=== PATIENT | female | born 2000 | race Two or more races ===

== ENCOUNTER 2024-05-20 15:27 | Emergency (ER) | payer MEDICAID, SELFPAY ==
[2024-05-20 15:28] VITALS: BMI 21.3
[2024-05-20 15:34] VITALS: BP 152/87; PULSE 77; RESP 18; TEMP 37.1; O2SAT 96
--- NOTE | 2024-05-20 15:43 | XR_ITS ---
Examination: CT brain head without contrast. 2-D sagittal coronal reconstructions Date and time of exam:May 20, 2024 1550 hours INDICATIONS: Onset dizziness today COMPARISON: July 10, 2004 CTDI: vol (mGy):44.8 DLP: (mGycm):825 Technique: Multiple CT axial sections of the brain have been obtained, 5 mm slice thickness. Contrast has not been administered. 2-D sagittal, coronal reconstructions have been obtained Low dose protocols were performed. One or more of the following dose reduction techniques were used; automated exposure control, adjustment of the mA and/or KV according to patient size, use of iterative reconstruction technique. Findings: No significant ventricular enlargement. Intra-axial or extra-axial hemorrhage density is not seen. No mass effect or midline shift Basal cisterns are not remarkable. Fourth ventricle is midline. Cranial vault intact. Impression: Negative for acute hemorrhage, mass effect or midline shift Advise clinical correlation follow-up accordingly
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
--- NOTE | 2024-05-20 15:43 | XR_ITS ---
Examination: CT cervical spine without contrast 2-D sagittal reconstructions 2-D coronal reconstructions 3-D reconstructions. Exam date and time:May 20, 2024 1550 hours INDICATIONS: Onset generalized neck pain today CTDI:vol (mGy) 7.11 DLP: (mGycm) 149 Technique: Multiple 2 mm axial sections of the cervical spine have been obtained. The coronal and sagittal reconstructions have been obtained. 3-D reconstructions have been obtained. Low dose protocols were performed. One or more of the following dose reduction techniques were used; automated exposure control, adjustment of the mA and/or KV according to patient size, use of iterative reconstruction technique. Findings: Axial sections demonstrate intact base of the skull. C1 exhibit satisfactory relationship to the odontoid. No acute cervical vertebral body fracture seen. Alignment posterior spinous processes satisfactory. Impression: No acute cervical fracture. If symptoms persist, recommend MRI cervical spine without contrast follow-up
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
[2024-05-20 18:31] LABS: HCG Qualitative,Urine Negative
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
[2024-05-20 18:54] VITALS: BP 111/58; PULSE 66; RESP 19; TEMP 37; O2SAT 99
[2024-05-20] MEDS: ACETAMINOPHEN 325 MG TABLET 650 MG PO (19:20)
[2024-05-20 19:29] VITALS: BP 92/49; PULSE 76; RESP 16; TEMP 36.7; O2SAT 98
== END 2024-05-20 19:29 | disposition home or self-care (01) ==
PROVIDERS: Nurse Practitioner Family; Emergency Provider Emergency Medicine
DX: S40.011A Contusion of right shoulder, initial encounter (principal); V43.52XA Car driver injured in collision with other type car in traffic accident, initial encounter; Y92.410 Unspecified street and highway as the place of occurrence of the external cause
CPT/HCPCS: 70450; 71046; 72125; 73030; 81025; 99284; A9270

== ENCOUNTER 2024-12-28 00:48 | Inpatient (IN) | payer MEDICAID, SELFPAY ==
[2024-12-28] VITALS (168 sets, daily range): BP systolic 86–166; BP diastolic 49–97; PULSE 46–124; RESP 16–97; TEMP 36.7–38.6; O2SAT 91–100; BMI 27.9; BMI 27.8
[2024-12-28 02:41] LABS: ROM Kit Exp Date# 04/11/28; ROM Kit Lot # 58106258; ROM Swab Mixed By: KE; Rupture of Fetal Membranes Positive (Negative); Swb Mxed in Solvent 1 min? Yes
--- NOTE | 2024-12-28 03:23 | PD.ADDHP ---
Addendum History & Physical Addendum Date of report being addended: 12/28/24 Narrative: Pt reexamined. No changes. Continue current plan.
[2024-12-28 05:04] LABS: Basophils # (Auto) 0.0 Thou/mm3 (0.0-0.2); Basophils % (Auto) 0 % (0-2.5); Eosinophils # (Auto) 0.1 Thou/mm3 (0.0-0.5); Eosinophils % (Auto) 1 % (0-10); Hematocrit 34.6 % (36.0-46.0); Hemoglobin 11.9 g/dL (12.0-16.0); Immature Granulocytes Auto 0.09 Thou/mm3 (0.00-0.00); Lymphocytes # (Auto) 1.7 Thou/mm3 (1.0-4.8); Lymphocytes % (Auto) 18 % (10-50); Mean Corpuscular HGB Conc 34.4 g/dl (31.0-37.0); Mean Corpuscular Hemoglobin 30.1 pg (25.0-35.0); Mean Corpuscular Volume 87 fL (80-100); Monocytes # (Auto) 0.5 Thou/mm3 (0.0-0.8); Monocytes % (Auto) 5 % (0-12); Neutrophils # (Auto) 7.0 Thou/mm3 (1.8-7.7); Neutrophils % (Auto) 75 % (37-80); Nucleated Red Blood Cell # 0.00 Thou/mm3 (0.00-0.00); Nucleated Red Blood Cell % 0 /100 WBC (0); Platelet Count 282 Thou/mm3 (140-440); RDW Standard Deviation 39.6 fL (36.4-46.3); Red Blood Count 3.96 Miln/mm3 (4.00-5.20); White Blood Count 9.4 Thou/mm3 (3.6-11.0)
[2024-12-28 05:38] LABS: Syphilis Nonreactive (Nonreactive)
[2024-12-28] MEDS: RINGERS LACTATED 1000 ML 1,000 ML 100 ML IV ×3 (10:16→11:13)
--- NOTE | 2024-12-28 11:30 | PC.NURSE ---
Patient allowed RN to view records on her online account RN verified OB labs and GBS. Pt is O+ antibody -, rubella IM, RNR-NR, Hep neg, HIV NR, and Chlam/Henrik Neg and GBS neg. RN awaiting on Dr. Hernandez to bring paper copy of records.
[2024-12-28] MEDS: MINERAL OIL 30 ML UDC TOP (13:45)
[2024-12-28] MEDS: OXYTOCIN in NS 20 units 20 UNIT/1,000 ML BAG 125 UNIT IV (13:52)
[2024-12-28] MEDS: METHYLERGONOVINE INJ 0.2 MG/ML VIAL IM (14:01)
--- NOTE | 2024-12-28 14:15 | PD.LDDS ---
DS: Providers Provider Date of admission: 12/28/24 02:45 Primary care physician: Physician No Primary/Family Admitting Provider: Clemente Hernandez MD Attending Provider on Admission: Clemente Hernandez MD Attending Provider on DC: Clemente Hernandez MD Discharging Provider: Clemente Hernandez MD DS: Diagnosis Discharge Diagnosis (1) Vacuum-assisted vaginal delivery: Status: Acute (2) hemorrhage: Status: Acute (3) Uterine atony: Status: Acute Problem List Completed Was Problem List Reviewed/Reconciled?: Yes Summary/Hosp Course Peripartum Data Delivery Method: Normal Vaginal Delivery Episiotomy Description: None Time Spent with Patient Time attestation: Total time spent providing and/or coordinating discharge services: Exam Vital Signs Temp Pulse Resp BP Pulse Ox 98.1 F 68 18 115/58 L 99 12/28/24 09:30 12/28/24 14:11 12/28/24 09:30 12/28/24 14:11 12/28/24 13:47 Discharge Plan Plan Patient Disposition: HOME (Self Care) Patient condition on transfer: Stable Prescriptions/Referrals Prescriptions/Med Rec: New ibuprofen 600 mg tablet 600 mg PO Q6H PRN (Reason: pain) Qty: 30 0RF hydrocortisone 2.5 % cream with perineal applicator 1 applic CO TID PRN (Reason: hemorrhoids) 7 Days Qty: 30 1RF amoxicillin-pot clavulanate 875-125 mg tablet 1 tab PO BID Qty: 10 0RF Continued ursodiol 300 mg capsule 300 mg PO QID Patient Comments: TAKE ONE CAPSULE BY MOUTH THREE TIMES DAILY Vitamin 27 mg iron- 800 mcg tablet 1 tab PO DAILY Patient Comments: TAKE ONE TABLET BY MOUTH EVERY DAY VITAMIN Discontinued ferrous sulfate [FeroSul] 325 mg (65 mg iron) tablet 325 mg PO DAILY Patient Comments: TAKE ONE TABLET BY MOUTH DAILY VITAMIN ORANGE JUICE aspirin 81 mg tablet,delayed release (DR/EC) 81 mg PO DAILY Patient Comments: TAKE ONE TABLET BY MOUTH EVERY DAY FOR THE HEART hydroxyzine HCl 25 mg tablet 25 mg PO QID Patient Comments: Take 1 tablet by mouth every six hours as directed for itching Referrals: No Primary/Family,Physician [Primary Care Provider] Patient/Caregiver Discharge Instructions Discharge Activity: activity as tolerated Other Discharge Activity Instructions:: Follow up office visit 6 weeks. Stop taking Ursodiol when itching stops. Education Materials: After a Vaginal , Breast Care After Print Language: [place]ian Stand Alone Forms: Dora Award Info., Patient Portal Info Letter Discharge Order Discharge Orders: Discharge (Routine); Ordered 12/30/24 Ordered By: Clemente Hernandez Planned Discharge Date 12/30/24 (2) hemorrhage Qualifiers: hemorrhage type: other immediate Qualified Code(s): O72.1 - Other immediate hemorrhage
--- NOTE | 2024-12-28 14:16 | PD.LDDELS ---
Vacuum Assisted Delivery General Patient Counseled by physician:: Yes Informed consent to patient:: Yes Estimated weight:: 6 lb 8 oz Cervical dilation:: fully dilated station:: +3 position:: OP Molding:: No Caput:: Yes Vacuum Application Vacuum type:: Mityvac Vacuum application:: flexing median Total vacuum time (min):: 5 Maximum pressure (cm Hg):: 50 Cup Placement Flexion point identified:: Yes Cup approp. for head position:: Yes Maternal tissue excluded:: Yes Vacuum Procedure Number of pulls (contractions):: 3 Number of pop-offs:: 2 Recommended range maintained:: Yes Vacuum reduced between pulls:: Yes Advancement made each pull:: Yes Vacuum successful:: Yes Immediate Evaluation Immediate assessment:: caput Hand-off care to:: nursery nurse Data ([facility]) Data Hx Section: No : 1 Term: 0 : 0 Livin Abortions: Spontaneous & Theraputic: 0 Delivery Data ([place]) Labor Data Initiation of labor: Induction Induction/Augmentation Agent: Cytotec-PO ROM date: 12/27/24 ROM time: 22:40 Amniotic membrane rupture type: Spontaneous Amniotic fluid description: Clear Delivery Data EDC: 01/13/25 EDC calculated by:: LMP/early US confirmation Onset of labor date: 12/27/24 Onset of labor time: 22:40 Complete dilation date: 12/28/24 Complete dilation time: 12:16 [facility] delivery date: 12/28/24 [facility] delivery time: 13:46 Gestational age (weeks): 37 Gestational age (days): 5 Placenta delivery date: 12/28/24 Placenta delivery time: 13:47 Stage 1 total time: Labor - Stage 1 Duration 13 hours and 36 minutes Delivered by: Clemente Hernandez Delivery nurse: Alayna Simons RN [place] nurse: Monique Rose RN Director Of Physical Therapy at delivery: No Support person(s) at delivery: fob and sister of pt Delivery Method Delivery method: Normal Vaginal Delivery Presentation: Vertex position: OP Anesthesia Type Anesthesia Type: Epidural Placenta Placenta delivery description: Spontaneous Cord blood sent to lab: Yes cord blood collection: Cord Blood Type, Arterial Cord Blood Gas and Venous Cord Blood Gas Episiotomy Episiotomy description: None Lacerations #1: Perineal: 2nd degree Vaginal: 2nd degree Perineal repair Sutures used for repair: 3.0 Chromic EBL Estimated blood loss (ml): 300 Umbilical Cord cord description: 3 Vessels Complications Complications: Uterine atony responded to Methergine, Pitocin, Cytotec and TXA Data ([place]) Data order: 1 [facility] gender: Male weight (gms): 7 lb 0.877 oz Weight (pounds): 7 lbs and 0.9 ozs [facility] length: 20.5 in 1 minute: 5 5 minutes: 8
[2024-12-28] MEDS: TRANEXAMIC ACID 1,000 MG IVPB 1,000 MG/100 ML BAG 200 MG IV (14:30)
[2024-12-28] MEDS: BENZO/LANO/ALOE (Dermoplast) 60 GM CAN 1 SPRAY TOP (14:34)
[2024-12-28] MEDS: IBUPROFEN TAB 400 MG TABLET 800 MG PO (14:36)
[2024-12-28] MEDS: ACETAMINOPHEN IVPB 1,000 MG/100 ML VIAL 250 MG IV ×2 (15:34→21:02)
[2024-12-28] MEDS: GENTAMICIN/NS 100 MG IVPB 100 MG/100 ML BAG IV ×3 (16:17→18:15)
[2024-12-28] MEDS: AMPICILLIN/SULBAC INJ 3 GM in SODIUM CHLORIDE 0.9% (POP) 100 ML IV (19:26)
[2024-12-28 20:43] LABS: Basophils # (Auto) 0.0 Thou/mm3 (0.0-0.2); Basophils % (Auto) 0 % (0-2.5); Eosinophils # (Auto) 0.0 Thou/mm3 (0.0-0.5); Eosinophils % (Auto) 0 % (0-10); Hematocrit 32.7 % (36.0-46.0); Hemoglobin 11.1 g/dL (12.0-16.0); Immature Granulocytes Auto 0.09 Thou/mm3 (0.00-0.00); Lymphocytes # (Auto) 1.7 Thou/mm3 (1.0-4.8); Lymphocytes % (Auto) 11 % (10-50); Mean Corpuscular HGB Conc 33.9 g/dl (31.0-37.0); Mean Corpuscular Hemoglobin 29.8 pg (25.0-35.0); Mean Corpuscular Volume 88 fL (80-100); Monocytes # (Auto) 0.8 Thou/mm3 (0.0-0.8); Monocytes % (Auto) 5 % (0-12); Neutrophils # (Auto) 12.6 Thou/mm3 (1.8-7.7); Neutrophils % (Auto) 83 % (37-80); Nucleated Red Blood Cell # 0.00 Thou/mm3 (0.00-0.00); Nucleated Red Blood Cell % 0 /100 WBC (0); Platelet Count 233 Thou/mm3 (140-440); RDW Standard Deviation 39.8 fL (36.4-46.3); Red Blood Count 3.72 Miln/mm3 (4.00-5.20); White Blood Count 15.2 Thou/mm3 (3.6-11.0)
--- NOTE | 2024-12-28 23:46 | PC.NURSE ---
MD notified regarding patient's HR of 44 bpm, patient asymptomatic. MD aware, no new order given.
[2024-12-29] MEDS: AMPICILLIN/SULBAC INJ 3 GM in SODIUM CHLORIDE 0.9% (POP) 100 ML IV ×4 (01:02→18:16)
[2024-12-29] MEDS: ACETAMINOPHEN IVPB 1,000 MG/100 ML VIAL 250 MG IV ×2 (03:25→10:01)
[2024-12-29] MEDS: IBUPROFEN TAB 400 MG TABLET 800 MG PO (03:54)
[2024-12-29 04:00] VITALS: BP 101/61; PULSE 53; RESP 18; TEMP 36.6; O2SAT 97
--- NOTE | 2024-12-29 06:58 | PC.NURSE ---
accessed patient's chart and EMAR for main nurse gilbert BREWER.
[2024-12-29 08:40] VITALS: BP 112/73; PULSE 61; RESP 18; TEMP 36.6; O2SAT 97
--- NOTE | 2024-12-29 09:10 | ESPR_ITS ---
RE: RHIANNON ARTEAGA : 2000 DATE OF SERVICE: 12/29/2024 SUBJECTIVE: day #1. Patient denies any problem or complaints. She is voiding. She is ambulating. She is tolerating regular diet. She is passing flatus. She denies any excessive vaginal bleeding. She denies any dizziness or lightheadedness. She denies any chest pain, palpitations, shortness of breath, or lower extremity pain. She had a temperature of 101.5 yesterday at 1525. OBJECTIVE: VITAL SIGNS: Blood pressure 101/61, heart rate 53, respirations 18, temperature is 97.9, pulse ox is 97% on room air. LUNGS: Clear to auscultation bilaterally. HEART: Regular rate and rhythm. ABDOMEN: Fundus is firm, nontender. EXTREMITIES: Nontender. LABORATORY DATA: Hemoglobin pre-delivery is 11.9, post-delivery is 11.1. White blood cell count is 15.2. ASSESSMENT: 1. day #1, status post vacuum-assisted vaginal delivery. 2. Endometritis. PLAN: Unasyn and gentamicin. Possible discharge home tomorrow. At times, the heart rate is in the bradycardic range, but she is asymptomatic. DT: 08:26:19 TT: 09:09:00 Ref: [id number] - TID: [id number]
[2024-12-29] MEDS: HYDROCORTISONE ACET CR 2.5% 30 GM TUBE PR ×2 (09:43→21:01)
[2024-12-29] MEDS: DOCUSATE SOD 100 MG CAPSULE PO (11:42)
[2024-12-29 11:50] VITALS: BP 98/52; PULSE 60; RESP 17; TEMP 36.9; O2SAT 98
[2024-12-29] MEDS: GENTAMICIN/NS 100 MG IVPB 100 MG/100 ML BAG IV ×3 (15:37→17:38)
[2024-12-29 21:00] VITALS: BP 103/57; PULSE 62; RESP 18; TEMP 36.7; O2SAT 98
[2024-12-30] MEDS: AMPICILLIN/SULBAC INJ 3 GM in SODIUM CHLORIDE 0.9% (POP) 100 ML IV ×2 (00:37→05:21)
[2024-12-30 04:00] VITALS: BP 97/59; PULSE 59; RESP 20; TEMP 36.7; O2SAT 98
[2024-12-30] MEDS: IBUPROFEN TAB 400 MG TABLET 800 MG PO (05:21)
--- NOTE | 2024-12-30 06:26 | ESPR_ITS ---
RE: RHIANNON ARTEAGA : 2000 DATE OF SERVICE: 12/30/2024 SUBJECTIVE: day #2. Patient denies any problem or complaints. OBJECTIVE: Blood pressure 97/59, heart rate 59, respirations 20, temperature is 98.0, pulse ox is 98% on room air, afebrile for 24 hours. Lungs clear to auscultation bilaterally. Heart regular rate rhythm. Abdomen, fundus is firm and nontender. Extremities nontender. ASSESSMENT AND PLAN: day #2, status post vacuum-assisted vaginal delivery, resolving endometritis. Plan discharge home on antibiotics, follow up in the office in 6 weeks, discharge instructions given. DT: 06:06:57 TT: 06:25:00 Ref: [id number] - TID: [id number]
[2024-12-30 07:40] VITALS: BP 97/51; PULSE 59; RESP 17; TEMP 36.8; O2SAT 99
[2024-12-30] MEDS: HYDROCORTISONE ACET CR 2.5% 30 GM TUBE PR (08:12)
[2024-12-30] MEDS: DOCUSATE SOD 100 MG CAPSULE PO (08:12)
== END 2024-12-30 11:28 | disposition home or self-care (01) | DRG 560 ==
LOC: S4SX 14:11 → S4NX 16:08
PROVIDERS: Admitting Provider Specialist; Visit Provider Specialist
DX: O70.1 Second degree perineal laceration during delivery (principal); Z37.0 Single live birth; O72.1 Other immediate postpartum hemorrhage; N71.9 Inflammatory disease of uterus, unspecified
CPT/HCPCS: 36415; 59025; 84112; 85025; 86780; 86850; 86900; 86901; J0131; J0295; J1580; J2210; J2590; J2795; J3010; J3490; J7120; S0191; A9270